=== PATIENT | female | born 1980 | race Caucasian/White ===

== ENCOUNTER 2017-11-24 14:48 | Emergency (ER) | payer BC ==
[2017-11-24] MEDS ORDERED: NS 500 ML IV ONE (15:05)
--- NOTE | 2017-11-24 15:09 | CPEKG ---
Heart Rate: 74 RR Interval: 811 P-R Interval: 176 QRSD Interval: 90 QT Interval: 384 QTC Interval: 426 P Epps: 67 QRS Epps: 68 T Wave Epps: 32 EKG Severity - NORMAL ECG - EKG Impression: SINUS RHYTHM Electronically Signed By: Tucker Felix 24-Nov-2017 21:36:00
--- NOTE | 2017-11-24 15:09 | EDPHY ---
H & P Smoking Status: Never smoked Time Seen by Provider: 11/24/17 14:55 HPI/ROS: CHIEF COMPLAINT: Syncope HISTORY OF PRESENT ILLNESS: Patient is a 37-year-old female with no significant past medical history presents emergency department after having a syncopal episode.. Patient states that she went on a hike at [employer] this morning. She returned to get lunch. While awaiting the rest when she had a small amount of beer. She felt slightly lightheaded. She walked to the bathroom to throw cold water on her face. While walking to the bathroom she felt the well close in. She felt dizzy. She subsequently had a syncopal episode. This was witnessed by her . She stated laceration to her forehead. She now has a mild headache. She had no preceding chest pain or shortness of breath. She currently has no chest pain or shortness of breath. No abdominal pain. Patient denies any focal deficits. No visual change. No nausea or vomiting. Patient states that she had a previous syncopal episode while on the airplane traveling home from [facility]. REVIEW OF SYSTEMS: My complete review of systems is negative except as mentioned in the HPI. ( Caryn Mendoza) Past Medical/Surgical History: Negative Past surgical history: Noncontributory Social history: The patient is . She does not smoke. She denies drugs. She drank alcohol last evening. (Caryn Mendoza) Physical Exam: Vitals noted GENERAL: Well-appearing, in no acute distress, alert. HEAD: Scalp is nontender. No hematoma. The patient has a 3 cm vertical laceration on her forehead. She also has a 2 cm laceration in a V like pattern. EYES: PERRLA, EOMI, normal to inspection. ENT: Airway intact, no dental or oral injury, no malocclusion, no hemotympanum , normal external examination. NECK: The trachea is midline. There is no crepitus. The C-spine is nontender. NEXUS criteria is negative (no midline tenderness, no distracting injury, no altered mental status, no recent alcohol use, no focal neurologic deficit). RESPIRATORY: Clear to auscultation bilaterally, no rales, rhonchi or wheezing. There is no crepitus or palpable rib fractures. CVS: Regular rate and rhythm, no rubs, murmurs, or gallops. ABDOMEN: Soft, nontender, nondistended, normal bowel sounds, no bruising or abrasions. Pelvis: Stable. No tenderness palpation. Hips full range of motion. BACK: Normal to inspection, no spinal tenderness, no spinal step off, no notable bruising or abrasions. SKIN: Normal color, warm, dry. No pallor or diaphoresis. EXTREMITIES: Atraumatic, neurovascularly intact distally in all extremities, pelvis is stable , hips with full range of motion, moves all extremities freely. NEURO/PSYCH: Higher functions: Alert and Oriented x3. Normal speech and cognition. Normal mood and affect. Cranial nerves: Normal as tested. Cerebellar: Normal as tested. Good finger to nose, good [id number], normal gait. Peripheral exam: Normal motor exam. Normal sensation. Normal reflexes. ( Caryn Mendoza) Constitutional: Initial Vital Signs Temperature (C) 36.8 C 11/24/17 14:58 Heart Rate 75 11/24/17 14:58 Respiratory Rate 18 11/24/17 14:58 Blood Pressure 149/107 H 11/24/17 14:58 O2 Sat (%) 100 11/24/17 14:58 O2 Delivery Mode Room Air Allergies/Adverse Reactions: Sulfa (Sulfonamide Antibiotics) Allergy (Verified 11/24/17 14:57) Home Medications: Medication Instructions Recorded Control Medication 11/24/17 Medical Decision Making Procedures: Procedure: Laceration repair. I was requested by Dr. Mendoza to perform wound closure I explained the indications, risks and benefits for both laceration repair and anesthetic administration. Verbal consent was obtained from the patient . The laceration on the glabella was anesthetized using 0.5% bupivicaine with epinephrine . After anesthetic administered the patient was observed for a period of time and had no apparent adverse effects. The wound was cleaned, prepped, draped in normal sterile fashion and explored to its base. No foreign body seen, no foreign bodies palpated. Patient has a v-shaped laceration. The right is aspect of the V measures 1.5 cm, superficial linear, closed with tissue adhesive. The left side is more significant and was closed with 12 simple interrupted 6 0 Prolene sutures. No deep structures involved. No muscular deficits identified. The wound repair was complex. The procedure was performed by myself. Patient has been informed that scarring will occur, although efforts have been made to minimize this. (Jeremías Quispe) ED Course/Re-evaluation: In the emergency department I discussed possible etiologies with the patient. I answered all her questions. An IV was placed by EMS. Patient had laboratory studies, EKG and head CT ordered. Patient was given normal saline 1 L IV for hydration. EKG shows normal sinus rhythm, normal rate, normal axis, normal intervals. There are no ST or T-wave abnormalities. EKG is normal as interpreted by me. Head CT: Please refer the dictated report. (Caryn Mendoza) Differential Diagnosis: My differential includes but is not limited to laceration, contusion, subarachnoid hemorrhage, subdural hematoma, epidural hematoma, dysrhythmia, ACS , acute OR, cardiomyopathy, , ectopic , dehydration, electrolyte abnormality, sugar abnormality, dissection, aneurysm, PE (Caryn Mendoza) - Data Points Laboratory Results: Laboratory Results 11/24/17 15:00 11/24/17 15:00 11/24/17 11/24/17 11/24/17 15:11 15:00 15:00 WBC RBC Hgb Hct MCV MCH MCHC RDW Plt Count MPV Neut % (Auto) Lymph % (Auto) Edmunds % (Auto) Eos % (Auto) Baso % (Auto) Nucleat RBC Rel Count Absolute Neuts (auto) Absolute Lymphs (auto) Absolute Monos (auto) Absolute Eos (auto) Absolute Basos (auto) Absolute Nucleated RBC Immature Gran % Immature Gran # PT INR APTT Sodium 132 mEq/L L mEq/L (135-145) Potassium 4.0 mEq/L mEq/L (3.3-5.0) Chloride 100 mEq/L mEq/L (97-110) Carbon Dioxide 23 mEq/l mEq/l (22-31) Anion Gap 9 mEq/L mEq/L (8-16) BUN 12 mg/dL mg/dL (7-23) Creatinine 0.9 mg/dL mg/dL (0.6-1.0) Estimated GFR > 60 Glucose 116 mg/dL H mg/dL (70-100) Calcium 9.7 mg/dL mg/dL (8.5-10.4) POC Troponin I 0.00 ng/mL ng/mL (0.00-0.08) Beta HCG, Qual NEGATIVE 11/24/17 11/24/17 15:00 15:00 WBC 8.09 10^3/uL 10^3/uL (3.80-9.50) RBC 3.92 10^6/uL L 10^6/uL (4.18-5.33) Hgb 13.1 g/dL g/dL (12.6-16.3) Hct 37.8 % L % (38.0-47.0) MCV 96.4 fL fL (81.5-99.8) MCH 33.4 pg pg (27.9-34.1) MCHC 34.7 g/dL g/dL (32.4-36.7) RDW 12.5 % % (11.5-15.2) Plt Count 264 10^3/uL 10^3/uL (150-400) MPV 8.8 fL fL (8.7-11.7) Neut % (Auto) 46.4 % % (39.3-74.2) Lymph % (Auto) 43.0 % % (15.0-45.0) Edmunds % (Auto) 7.2 % % (4.5-13.0) Eos % (Auto) 2.6 % % (0.6-7.6) Baso % (Auto) 0.7 % % (0.3-1.7) Nucleat RBC Rel Count 0.0 % % (0.0-0.2) Absolute Neuts (auto) 3.75 10^3/uL 10^3/uL (1.70-6.50) Absolute Lymphs (auto) 3.48 10^3/uL H 10^3/uL (1.00-3.00) Absolute Monos (auto) 0.58 10^3/uL 10^3/uL (0.30-0.80) Absolute Eos (auto) 0.21 10^3/uL 10^3/uL (0.03-0.40) Absolute Basos (auto) 0.06 10^3/uL 10^3/uL (0.02-0.10) Absolute Nucleated RBC 0.00 10^3/uL 10^3/uL (0-0.01) Immature Gran % 0.1 % % (0.0-1.1) Immature Gran # 0.01 10^3/uL 10^3/uL (0.00-0.10) PT 12.7 SEC SEC (12.0-15.0) INR 0.93 (0.83-1.16) APTT 23.8 SEC SEC (23.0-38.0) Sodium Potassium Chloride Carbon Dioxide Anion Gap BUN Creatinine Estimated GFR Glucose Calcium POC Troponin I Beta HCG, Qual Medications Given: Discontinued Medications Sodium Chloride (Ns) 500 mls @ 0 mls/hr IV EDNOW ONE; Wide Open PRN Reason: Protocol Stop: 11/24/17 15:06 Last Admin: 11/24/17 15:14 Dose: 500 mls Point of Care Test Results: Chemistry 11/24/17 15:11 POC Troponin I 0.00 ng/mL ng/mL (0.00-0.08) Departure - Departure Disposition: Home, Routine, Self-Care Clinical Impression: Syncope Qualifiers: Syncope type: unspecified Qualified Code(s): R55 - Syncope and collapse Condition: Good Instructions: Syncope (ED) Additional Instructions: Return with increasing headache, nausea, vomiting, weakness, numbness, chest pain, repeat fainting episode or any other concerns. Referrals: Aliya Villalpando DO [Doctor of Osteopathy] - 3-4 days, if not improved
[2017-11-24 15:19] LABS: PLATELET COUNT 264 10^3/uL (150-400)
[2017-11-24 15:29] LABS: INR 0.93 (0.83-1.16); PROTIME(PATIENT) 12.7 SEC (12.0-15.0)
[2017-11-24 16:50] VITALS: BP 122/82
== END 2017-11-24 16:49 | disposition home or self-care (01) ==
PROC: 0HQ1XZZ Repair Face Skin, External Approach (ICD-10-PCS; principal; 2017-11-24)
DX: S01.81XA Laceration without foreign body of other part of head, initial encounter (principal); R55 Syncope and collapse; E86.9 Volume depletion, unspecified; X58.XXXA Exposure to other specified factors, initial encounter; Y92.002 Bathroom of unspecified non-institutional (private) residence as the place of occurrence of the external cause; Y99.8 Other external cause status; Y93.01 Activity, walking, marching and hiking
CPT/HCPCS: 84484-PO